=== PATIENT | male | born 1970 | race Caucasian/White ===

== ENCOUNTER → 2017-06-28 | Outpatient (CLI) | payer SELFPAY ==
--- NOTE | 2017-06-28 17:07 | XR ---
EXAMINATION TYPE: XR toes LT DATE OF EXAM: 06/28/2017 COMPARISON: NONE HISTORY: Second digit ulcer TECHNIQUE: 3 views FINDINGS: There is soft tissue swelling at the end of the second toe. Cortex is irregular at the tuft of the distal phalanx. I see no fracture. IMPRESSION: Soft tissue swelling. Tuft deformity that is suspicious for osteomyelitis.
== END | disposition home or self-care (01) ==
LOC: RADXRMAIN 16:38
PROVIDERS: ATTEND Family Medicine
DX: M79.89 Other specified soft tissue disorders (principal); M20.5X2 Other deformities of toe(s) (acquired), left foot; E11.40 Type 2 diabetes mellitus with diabetic neuropathy, unspecified

== ENCOUNTER 2017-07-02 10:31 | Inpatient (IN) | payer OTHER ==
[2017-07-02 16:23] LABS: Basophils % (A) 0 %; CH 27.8; CHCM 33.7; Eosinophils # (A) 0.2 k/uL (0-0.7); Eosinophils % (A) 4 %; HCT 37.6 % (39.0-53.0); HDW 2.81; HGB 12.1 gm/dL (13.0-17.5); Luc # (Auto) 0.09; Luc % (Auto) 2; Lymphocytes # (A) 1.5 k/uL (1.0-4.8); Lymphocytes % (A) 24 %; MCH 26.8 pg (25.0-35.0); MCHC 32.2 g/dL (31.0-37.0); Mean Platelet Volume 6.9; Monocytes # (A) 0.4 k/uL (0-1.0); Monocytes % (A) 7 %; Neutrophils % (A) 64 %; RBC 4.53 m/uL (4.30-5.90); RDW 14.1 % (11.5-15.5); WBC 6.2 k/uL (3.8-10.6); WBC (Perox) 6.45
[2017-07-02 16:46] LABS: Anion Gap 9 mmol/L; Blood Urea Nitrogen 22 mg/dL (9-20); Calcium 9.7 mg/dL (8.4-10.2); Carbon Dioxide 23 mmol/L (22-30); Chloride 106 mmol/L (98-107); Glucose 319 mg/dL (74-99); Non-African American GFR(MDRD) >60 (>60 ml/min/1.73 sqM); Potassium 4.6 mmol/L (3.5-5.1); Sodium 138 mmol/L (137-145)
[2017-07-02 17:14] LABS: Glucose,Whole Blood 292 mg/dL (75-99)
[2017-07-02] MEDS ORDERED: INSULIN ASPART 100 UNIT/ML 1 ML 10 ML VIAL SQ SCH (17:30)
[2017-07-02] MEDS ORDERED: LEVOFLOXACIN 500 MG TAB PO SCH (18:00)
--- NOTE | 2017-07-02 19:59 | HP ---
HISTORY AND PHYSICAL DATE OF ADMISSION: 07/02/17 PRESENTING COMPLAINT: Left foot and toe infection. HISTORY OF PRESENTING COMPLAINT: This is a very pleasant 47-year-old patient Dr. Harden. Chronic stable medical conditions include diabetes, hypertension, hyperlipidemia, peripheral neuropathy. The patient has had a callus on the left foot distal part of the toe. He takes off periodically this time. This time around 2 weeks ago he took it off and the toes became rather infected, swollen and red. The patient has a normal sensation in the feet. Denies any fever. Patient did get Levaquin to which he has not responded; hence, he is here. REVIEW OF SYSTEMS: CONSTITUTIONAL: None. HEENT: None. RESPIRATORY: None. CARDIOVASCULAR: None. GASTROINTESTINAL: Denies. MUSCULOSKELETAL: As above. DERMATOLOGICAL: As above. LYMPHATICS: None. PSYCHIATRY: None. NEUROLOGIC: None except for numbness and tingling in the feet. PAST MEDICAL HISTORY: Diabetes mellitus type 2, hypertension, hyperlipidemia, peripheral neuropathy. PAST SURGICAL HISTORY: Right knee arthroscopy. SOCIAL HISTORY: , No smoking. Smokes about 4 marijuanas a day. FAMILY HISTORY: Cancer, type unknown. HOME MEDICATIONS: 1. Insulin Lantus 75 units subcu q.h.s. 2. Levaquin 500 mg q.h.s. 3. NovoLog FlexPen as directed. 4. Neurontin 100 mg t.i.d. 5. Vasotec 20 mg q.h.s. 6. Lipitor 40 mg q.h.s. ALLERGIES: None. PHYSICAL EXAMINATION: Temperature 97.9, pulse 59, respirations 20, blood pressure 127/86, pulse ox 98% on room air. GENERAL APPEARANCE: Well built, BMI 36.5, sitting up comfortable. EYES: Pupils equal. Conjunctivae normal. HEENT: Oral cavity normal. NECK: JVD not raised. Mass not palpable. RESPIRATORY: Effort, lungs are clear. CARDIOVASCULAR: First and second sounds normal. No edema. ABDOMEN: Soft, nontender. Liver and spleen not palpable. LYMPHATIC: No lymph nodes palpable in neck or axillae. PSYCHIATRY: Alert and oriented x3. Mood and affect normal. NEUROLOGICAL: Pupils equal. Cranial nerves grossly intact. Some decreased sensation in the feet. The patient's left 2nd foot toes rather boggy, swollen, red, slight tenderness and breakdown of skin in the distal aspect just below the nail. INVESTIGATIONS: White count 6.2, hemoglobin 12.1, potassium 4.6, BUN 22, creatinine 0.77. Accu-Cheks 319, 292. ASSESSMENT: 1. Acute left 2nd toe cellulitis. Need to rule out abscess/osteomyelitis, being present for 2 weeks. More likely I think it is an abscess given it is swollen, tender, red. 2. Diabetes mellitus type 2, chronically on insulin, somewhat uncontrolled. 3. Essential hypertension. 4. Hyperlipidemia. 5. Peripheral neuropathy secondary to diabetes. 6. Obesity BMI 36.5. PLAN: Home medications are resumed. Will keep the current dose of Lantus but will increase the NovoLog to 20 units with each meal. We will check a HbA1c. We will switch the patient over to IV Zosyn. ID was consulted. Will await further input from them. Patient should see a dietitian for weight loss measures. Care was discussed with the patient. MMODL / MYRONN: [id number] /
[2017-07-02 20:47] LABS: Glucose,Whole Blood 310 mg/dL (75-99)
[2017-07-02] MEDS: PIPERACILLIN-TAZOBACTAM 3.375 GM in DEXTROSE/WATER 1 50ML.BAG IVPB SCH (21:31)
[2017-07-02] MEDS: LISINOPRIL 20 MG TAB PO SCH (21:31)
[2017-07-02] MEDS: ENOXAPARIN 40 MG/0.4 ML SYRINGE SQ SCH (21:31)
[2017-07-02] MEDS: ATORVASTATIN 40 MG TAB PO SCH (21:31)
[2017-07-02] MEDS: GABAPENTIN 100 MG CAP PO SCH (21:32)
[2017-07-02] MEDS: INSULIN DETEMIR 100 UNIT/ML 10 ML VIAL SQ SCH (21:42)
[2017-07-02] MEDS: INSULIN ASPART 100 UNIT/ML 1 ML 10 ML VIAL SQ SCH (23:04)
[2017-07-03] MEDS: PIPERACILLIN-TAZOBACTAM 3.375 GM in DEXTROSE/WATER 1 50ML.BAG IVPB SCH ×3 (04:19→20:25)
[2017-07-03] MEDS ORDERED: INSULIN ASPART 100 UNIT/ML 1 ML 10 ML VIAL SQ SCH ×2 (07:30→22:25)
[2017-07-03 07:41] LABS: Glucose,Whole Blood 130 mg/dL (75-99)
[2017-07-03 07:58] LABS: Basophils % (A) 0 %; CH 27.5; CHCM 34.2; Eosinophils # (A) 0.2 k/uL (0-0.7); Eosinophils % (A) 2 %; HCT 37.2 % (39.0-53.0); HDW 2.86; HGB 12.2 gm/dL (13.0-17.5); Luc # (Auto) 0.08; Luc % (Auto) 1; Lymphocytes # (A) 1.7 k/uL (1.0-4.8); Lymphocytes % (A) 23 %; MCH 26.5 pg (25.0-35.0); MCHC 32.8 g/dL (31.0-37.0); MCV 80.7 fL (80.0-100.0); Mean Platelet Volume 6.9; Monocytes # (A) 0.5 k/uL (0-1.0); Monocytes % (A) 7 %; Neutrophils # (A) 4.9 k/uL (1.3-7.7); Neutrophils % (A) 67 %; RBC 4.61 m/uL (4.30-5.90); RDW 13.7 % (11.5-15.5); WBC 7.3 k/uL (3.8-10.6); WBC (Perox) 7.48
[2017-07-03] MEDS: INSULIN ASPART 100 UNIT/ML 1 ML 10 ML VIAL SQ SCH ×4 (08:18→21:45)
[2017-07-03] MEDS: ENOXAPARIN 40 MG/0.4 ML SYRINGE SQ SCH (08:19)
[2017-07-03] MEDS: GABAPENTIN 100 MG CAP PO SCH ×3 (08:19→21:44)
[2017-07-03 08:21] LABS: Anion Gap 6 mmol/L; Blood Urea Nitrogen 16 mg/dL (9-20); Calcium 9.2 mg/dL (8.4-10.2); Carbon Dioxide 25 mmol/L (22-30); Chloride 106 mmol/L (98-107); Glucose 129 mg/dL (74-99); Non-African American GFR(MDRD) >60 (>60 ml/min/1.73 sqM); Sodium 137 mmol/L (137-145)
[2017-07-03 11:19] VITALS: BMI 36.5
[2017-07-03] MEDS ORDERED: ZOLPIDEM 5 MG TAB PO PRN (11:48)
[2017-07-03 12:09] LABS: Glucose,Whole Blood 213 mg/dL (75-99)
--- NOTE | 2017-07-03 12:27 | PN ---
PROGRESS NOTE DATE OF SERVICE: 07/03/2017 CHIEF COMPLAINT: Toe infection. INTERVAL HISTORY: This is a patient who presents with left foot toe infection. Getting antibiotics, awaiting input from ID. No fever, no diarrhea, tolerating a diet. REVIEW OF SYSTEMS: Done for constitutional, cardiovascular, GI, pulmonary, dermatological; relevant findings as above. CURRENT MEDICATIONS: Reviewed that include IV Zosyn. PHYSICAL EXAMINATION: Temperature 98.8, pulse 84, respirations 16, blood pressure 138/78, pulse ox 97% on room air. GENERAL APPEARANCE: Sitting up, comfortable. EYES: Pupil equal, conjunctivae normal. NECK: JVD not raised. Mass not palpable. RESPIRATORY: Effort normal. Lungs are clear. CARDIOVASCULAR: First and second sounds normal. No edema. ABDOMEN: Soft, nontender. Liver and spleen not palpable. PSYCHIATRY: Alert and oriented x3. Mood and affect normal. EXTREMITIES: Left foot 2nd toe infection that was boggy, swollen, red, slight tenderness and breakdown of the skin. INVESTIGATIONS: White count 7.3, hemoglobin 12.2 potassium 4.0. Accu-Cheks 130. ASSESSMENT: 1. Acute left second toe cellulitis. Need to rule out abscess/osteomyelitis being present for 2 weeks, more likely acting I think is an abscess given it is swollen, tender, red. 2. Diabetes mellitus type 2, chronically uncontrolled. 3. Essential hypertension. 4. Hyperlipidemia. 5. Peripheral neuropathy secondary to diabetes. 6. Obesity, body mass index 36.5. PLAN: Continue with current medication and treatment plan. Care was discussed with the patient. Await input from ID and follow. Patient is slow to respond. MMODL / IJN: [id number] /
[2017-07-03] MEDS: ACETAMINOPHEN TAB 325 MG TAB PO PRN (12:32)
--- NOTE | 2017-07-03 14:24 | NM ---
EXAMINATION TYPE: NM bone 3 phase DATE OF EXAM: 07/03/2017 COMPARISON: 06/28/2017 HISTORY: Left foot second toe ulceration and swelling with concern for osteomyelitis and prior radiog raph suggesting osteomyelitis. Triple phase bone scintigraphy was performed following the injection of25.6 mCi Tc 99m MDP. Immediat e images and 5 hours post injection images acquired. FINDINGS: Corresponding to the prior radiographic finding there is focal increased radiotracer uptake at the di stal aspect of the second digit of the left foot on all 3 phases (flow, blood pool, and delayed). Sym metric bilateral uptake within the hindfoot and midfoot related to arthropathy. No other suspicious a reas of uptake are identified. IMPRESSION: Findings compatible with osteomyelitis of the distal aspect of the second digit of the le ft foot. Additional symmetric hindfoot and midfoot arthropathy.
[2017-07-03 17:03] LABS: Glucose,Whole Blood 231 mg/dL (75-99)
[2017-07-03] MEDS: ATORVASTATIN 40 MG TAB PO SCH (20:25)
[2017-07-03] MEDS: LISINOPRIL 20 MG TAB PO SCH (20:25)
[2017-07-03 20:57] LABS: Glucose,Whole Blood 266 mg/dL (75-99)
[2017-07-03] MEDS: INSULIN DETEMIR 100 UNIT/ML 10 ML VIAL SQ SCH (21:44)
--- NOTE | 2017-07-04 01:12 | P.CONS ---
History of Present Illness - Reason for Consult Consult date: 07/03/17 - Chief Complaint Ulcer left second toe - History of Present Illness 47-year-old male presents to the hospital because of significant difficulty with increasing wound to the left foot second toe. The patient relates within the last few years he's had difficulties. He does have underlying diabetes mellitus that is poorly controlled. He has difficulty with his dietary compliance, he has eaten [place] fried chicken for dinner and is drinking a Mountain Dew. The patient relates that he had a [place] fitting boots which started callous formation to that second toe a couple years ago. Since then he appears down the callus himself on an ongoing basis. Within the last few weeks he. The callus and relates that he had much too deeply. Been having some drainage and difficulty since. The days before admission the toe became much more swollen and erythematous developed some drainage. He was in the outpatient setting in place of antibiotic therapy with Levaquin. Despite this the toe markedly worsened and he constantly was admitted to hospital for further intervention. The infectious diseases consultation was requested. The patient relates that he is with some discomfort but he is not in severe pain. Review of Systems HEENT:Denies headache or acute visual change. Denies sinus or mouth discomforts. Denies neck stiffness or pain. Denies significant oral cavity pain. Denies difficulty on swallowing. Lungs: Denies significant shortness of breath, cough, sputum production, or hemoptysis. Cardiovascular: Denies significant shortness of breath, chest pain, chest wall pain, orthopnea, dyspnea on exertion, syncope Gastrointestinal:Denies nausea, vomiting, diarrhea, constipation, hematemesis, melena, hematochezia. No no significant change of bowel habit noticed. Musculoskeletal: denies significant myalgias or arthralgias. No new joint swelling. Denies new back pain. Skin: Swelling erythema and drainage left foot second toe as per the HPI Neuro: Denies headache or visual change. Denies any new onset weakness or difficulty with ambulation. Denies falls or seizures. Psychiatric:Denies anxiety or depression. Endocrine: Relates tingling difficulties with his glucose control. Past Medical History Past Medical History: Diabetes Mellitus, Hyperlipidemia, Hypertension Additional Past Medical History / Comment(s): IDDM type II, R foot 2nd toe injury 2 yrs ago-healed with thick callous which pt picked off 2-3 weeks ago and then got infected, bilateral foot pain with walking mostly, bilateral feet neuropathy, has had boils lanced on neck and back. 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 No tobacco use but does use medical marijuana. No Alcohol abuse. No injection drug use. Pet dog at home. No experience Smoking Status: Never smoker - Past Family History Father History Unknown: Yes Additional Family Medical History / Comment(s): Pt was not raised by biological father. Mother Family Medical History: Cancer Additional Family Medical History / Comment(s): Mother of breast cancer. Medications and Allergies Home Medications and Allergies Comment(s): Current Medications Acetaminophen (Tylenol Tab) 650 mg PO Q6HR PRN PRN Reason: Fever and/ or Pain Last Admin: 07/03/17 12:32 Dose: 650 mg Atorvastatin Calcium (Lipitor) 40 mg PO HS [facility] Last Admin: 07/03/17 20:25 Dose: 40 mg Enoxaparin Sodium (Lovenox) 40 mg SQ DAILY [facility] Last Admin: 07/03/17 08:19 Dose: 40 mg Gabapentin (Neurontin) 100 mg PO TID [facility] Last Admin: 07/03/17 21:44 Dose: 100 mg Piperacillin/Tazobactam/ (Dextrose 3.375 gm/ IV Solution) 50 mls @ 12.5 mls/hr IVPB Q8H [facility] Last Admin: 07/03/17 20:25 Dose: 12.5 mls/hr Insulin Aspart (Novolog) 0 unit SQ ACHS [facility] PRN Reason: Protocol Last Admin: 07/03/17 21:45 Dose: 5 unit Insulin Detemir (Levemir) 55 unit SQ HS [facility] Last Admin: 07/03/17 21:44 Dose: 55 unit Lisinopril (Zestril) 40 mg PO HS [facility] Last Admin: 07/03/17 20:25 Dose: 40 mg Zolpidem Tartrate (Ambien) 2.5 mg PO HS PRN PRN Reason: Insomnia Last Admin: 07/03/17 22:03 Dose: 2.5 mg Home Medications Medication Instructions Recorded Confirmed Type Atorvastatin [Lipitor] 40 mg PO HS 07/02/17 07/02/17 History Enalapril [Vasotec] 20 mg PO HS 07/02/17 07/02/17 History Gabapentin [Neurontin] 100 mg PO TID 07/02/17 07/02/17 History Insulin Aspart [Novolog Flexpen] 7 unit SQ DIRECTED 07/02/17 07/02/17 History Insulin Glargine,Hum.rec.anlog 55 unit SQ HS 07/02/17 07/02/17 History [Lantus Solostar] Levofloxacin [Levaquin] 500 mg PO HS 07/02/17 07/02/17 History Allergies Allergy/AdvReac Type Severity Reaction Status Date / Time No Known Allergies Allergy Verified 07/02/17 13:15 Physical Exam Vitals: Vital Signs Temp Pulse Resp BP BP Pulse Ox 07/03/17 23:00 98.2 F 88 18 148/87 95 07/03/17 15:00 97.6 F 77 16 146/97 94 L 07/03/17 07:00 98.8 F 84 16 138/78 97 Intake and Output 07/03/17 07/03/17 07/04/17 14:59 22:59 06:59 Intake Total 200 600 Balance 200 600 Intake: Oral 200 600 Other: Voiding Method Toilet Urinal # Voids 2 1 Weight 115.4 kg Patient Weight 07/04/17 06:59 Weight 115.4 kg 47-year-old male who is in no acute distress HEENT: Anicteric conjunctiva are pink and moist nasal mucosa grossly intact without significant lesions, there is no thrush. Neck: The neck is supple without significant lymphadenopathy or thyromegaly. Lungs: Good bilateral air entry without significant crackles only a few scattered wheezes are heard There is no significant bronchial sounds. There is no egophony or dullness. Heart: Regular rate and rhythm with an audible S1-S2, no S3 no S4. There is no significant murmur click or rub, PMI was nondisplaced. Abdomen: Obese, Positive bowel sounds soft and nontender without palpable masses or organomegaly. There was no guarding or rebound. Extremities: The upper extremities have excellent pulses they are symmetric, no significant petechiae or telangiectasia. No splinter hemorrhages were noted. Right lower extremity without significant lesions. Left foot shows evidence of some swelling. The second toe has evidence of the distal ulceration. There are some expressible purulence which is cultured. There is dense erythema and some of the swelling to the toe attracts onto the dorsum of the foot and onto the distal leg. No significant left inguinal lymphadenopathy is noted. No abnormal lymph nodes are noted. Neuro: Awake alert oriented to person place and time. There are no acute new gross focal sensory motor deficits. Results CBC & Chem 7: 07/03/17 07:35 07/03/17 07:35 Labs: Abnormal Lab Results - Last 24 Hours (Table) 07/03/17 07/03/17 07/03/17 Range/Units 07:35 07:35 07:36 Hgb 12.2 L (13.0-17.5) gm/dL Hct 37.2 L (39.0-53.0) % Glucose 129 H (74-99) mg/dL POC Glucose (mg/dL) 130 H (75-99) mg/dL 07/03/17 07/03/17 07/03/17 Range/Units 11:53 16:59 20:54 Hgb (13.0-17.5) gm/dL Hct (39.0-53.0) % Glucose (74-99) mg/dL POC Glucose (mg/dL) 213 H 231 H 266 H (75-99) mg/dL Microbiology - Last 24 Hours (Table) 07/02/17 15:31 Blood Culture - Preliminary Blood No Growth after 24 hours 07/02/17 23:15 Urine Culture - Preliminary Urine,Voided Laboratory Results WBC 7.3 k/uL (3.8-10.6) 07/03/17 07:35 RBC 4.61 m/uL (4.30-5.90) 07/03/17 07:35 Hgb 12.2 gm/dL (13.0-17.5) L 07/03/17 07:35 Hct 37.2 % (39.0-53.0) L 07/03/17 07:35 MCV 80.7 fL (80.0-100.0) 07/03/17 07:35 MCH 26.5 pg (25.0-35.0) 07/03/17 07:35 MCHC 32.8 g/dL (31.0-37.0) 07/03/17 07:35 RDW 13.7 % (11.5-15.5) 07/03/17 07:35 Plt Count 261 k/uL (150-450) 07/03/17 07:35 Neutrophils % 67 % 07/03/17 07:35 Lymphocytes % 23 % 07/03/17 07:35 Monocytes % 7 % 07/03/17 07:35 Eosinophils % 2 % 07/03/17 07:35 Basophils % 0 % 07/03/17 07:35 Neutrophils # 4.9 k/uL (1.3-7.7) 07/03/17 07:35 Lymphocytes # 1.7 k/uL (1.0-4.8) 07/03/17 07:35 Monocytes # 0.5 k/uL (0-1.0) 07/03/17 07:35 Eosinophils # 0.2 k/uL (0-0.7) 07/03/17 07:35 Basophils # 0.0 k/uL (0-0.2) 07/03/17 07:35 Sodium 137 mmol/L (137-145) 07/03/17 07:35 Potassium 4.0 mmol/L (3.5-5.1) 07/03/17 07:35 Chloride 106 mmol/L (98-107) 07/03/17 07:35 Carbon Dioxide 25 mmol/L (22-30) 07/03/17 07:35 Anion Gap 6 mmol/L 07/03/17 07:35 BUN 16 mg/dL (9-20) 07/03/17 07:35 Creatinine 0.80 mg/dL (0.66-1.25) 07/03/17 07:35 Est GFR (MDRD) Af Amer >60 (>60 ml/min/1.73 sqM) 07/03/17 07:35 Est GFR (MDRD) Non-Af >60 (>60 ml/min/1.73 sqM) 07/03/17 07:35 Glucose 129 mg/dL (74-99) H 07/03/17 07:35 POC Glucose (mg/dL) 266 mg/dL (75-99) H 07/03/17 20:54 POC Glu Bass Mechanism Maker ID Sera Grigsby 07/03/17 20:54 Calcium 9.2 mg/dL (8.4-10.2) 07/03/17 07:35 Microbiology 07/02/17 15:31 Blood Blood Culture - Preliminary No Growth after 24 hours 07/02/17 23:15 Urine,Voided Urine Culture - Preliminary Comments: X-ray with evidence of osteomyelitis of the distal tuft of the second toe left foot Assessment and Plan (1) Osteomyelitis of toe of left foot Narrative/Plan: 47-year-old male with a known history of diabetes mellitus type 2 poorly controlled has developed a callus area to the left foot second toe. He has been doing self parring of the callus. Recently apparently this became more injured. Is now developed evidence of significant infection to that digit that extends onto the dorsum of the foot and the distal leg. There is evidence of an ostial myelitis that site. Cultures are process. With his diabetes antibiotic therapy will be utilized with Zosyn at this time. Wound care with medical Honey is applied. Wound culture obtained which will further help direct therapy at the time of discharge. Likely will need outpatient intravenous antibiotic therapy for toe salvage. Will need diabetic shoes with appropriate fitting so that he will prevent further wounds in the future. Current Visit: Yes Status: Acute Code(s): M86.9 - OSTEOMYELITIS, UNSPECIFIED SNOMED Code(s): 74082383 (2) Diabetes mellitus type 2 with complications, uncontrolled Current Visit: Yes Status: Acute Code(s): E11.8 - TYPE 2 DIABETES MELLITUS WITH UNSPECIFIED COMPLICATIONS; E11.65 - TYPE 2 DIABETES MELLITUS WITH HYPERGLYCEMIA SNOMED Code(s): 305046885
[2017-07-04] MEDS: PIPERACILLIN-TAZOBACTAM 3.375 GM in DEXTROSE/WATER 1 50ML.BAG IVPB SCH ×3 (04:21→21:15)
[2017-07-04] MEDS: ACETAMINOPHEN TAB 325 MG TAB PO PRN (05:59)
[2017-07-04 07:24] LABS: Glucose,Whole Blood 212 mg/dL (75-99)
[2017-07-04] MEDS: INSULIN ASPART 100 UNIT/ML 1 ML 10 ML VIAL SQ SCH ×4 (07:48→21:16)
[2017-07-04] MEDS: GABAPENTIN 100 MG CAP PO SCH ×3 (07:48→21:15)
[2017-07-04] MEDS: ENOXAPARIN 40 MG/0.4 ML SYRINGE SQ SCH (07:48)
[2017-07-04 08:41] LABS: Anion Gap 8 mmol/L; Blood Urea Nitrogen 16 mg/dL (9-20); Calcium 9.6 mg/dL (8.4-10.2); Carbon Dioxide 27 mmol/L (22-30); Chloride 105 mmol/L (98-107); Glucose 189 mg/dL (74-99); Non-African American GFR(MDRD) >60 (>60 ml/min/1.73 sqM); Potassium 4.4 mmol/L (3.5-5.1); Sodium 140 mmol/L (137-145)
[2017-07-04 11:51] LABS: Glucose,Whole Blood 248 mg/dL (75-99)
[2017-07-04 16:54] LABS: Glucose,Whole Blood 186 mg/dL (75-99)
--- NOTE | 2017-07-04 17:21 | P.PN ---
Progress Note - Text Progress Note Date: 07/04/17 DATE OF SERVICE: 07/04/2017 PRESENTING COMPLAINT: Left toe infection HISTORY OF PRESENT ILLNESS: 47-year-old male who had a callus on the left second distal phalanx, he removes it himself periodically. About 2 weeks ago he took it off and since that time the toe has become infected. Was seen by his primary care physician received Levaquin to which she had not responded, Admitted for the same. INTERVAL HISTORY: 07/04/2017: Patient seen in follow-up lying in bed appears comfortable. No acute overnight events. Remains afebrile. Tolerating his diet, ambulatory within the room. Moved his bowels prior to admission. REVIEW OF SYSTEMS: Done for constitutional ,cardiovascular, GI, pulmonary, musculoskeletal, integument with relevant findings as above. CURRENT MEDICATIONS Tylenol, Lipitor, Lovenox, Neurontin, NovoLog, Levemir 35 units subcu at bedtime , Zestril 40 mg by mouth at bedtime, Zosyn 3.375 g in IVP back, Ambien 2.5 mg by mouth at bedtime. PHYSICAL EXAM VITAL SIGNS: Temperature 97.3, pulse 79, respirations 20, blood pressure 155/64, oxygen saturation 98% on room air. GENERAL APPEARANCE: Lying in bed, not in distress. EYES: Pupils equal. Conjunctiva normal. NECK: JVD not raised. Mass not palpable. RESPIRATORY: Respiratory effort normal. Lungs clear to auscultation. CARDIOVASCULAR: First and second sounds normal. No edema. ABDOMEN: Soft. Liver and spleen not palpable. No tenderness. No mass palpable. PSYCHIATRY: Alert and oriented x3. Mood and affect normal. NEUROLOGIC: Decreased sensation in the bilateral feet left second toe is boggy, swollen, red, mild tenderness, skin breakdown at the distal aspect just below the nail. INVESTIGATIONS: BMP unremarkable, Accu-Cheks running between 129-310 ASSESSMENT: -Acute left second toe osteomyelitis Likely abscess present for 2 weeks, slow to respond -Diabetes mellitus type 2, chronically on insulin, somewhat uncontrolled. -Essential hypertension. -Hyperlipidemia. -Peripheral neuropathy secondary to diabetes -Obesity body mass index 36.5. PLAN: Patient's blood glucose at each meal before each meal has been pretty high, we will resume his prandial NovoLog at 7 units with each meal and see how he does. Continue current antibiotic therapy per infectious disease. Dressing changes per infectious disease with medical honey. Plan of care discussed with the patient at the bedside he is in agreement. We will follow closely. CUT OFF OPERATOR SCORER statement: Patient was seen and examined by nurse practitioner Rosalva Barr and all elements of the case discussed with attending Dr. Gutierrez
[2017-07-04] MEDS ORDERED: INSULIN ASPART 100 UNIT/ML 1 ML 10 ML VIAL SQ SCH (17:30)
[2017-07-04 20:52] LABS: Glucose,Whole Blood 171 mg/dL (75-99)
[2017-07-04] MEDS: INSULIN DETEMIR 100 UNIT/ML 10 ML VIAL SQ SCH (21:15)
[2017-07-04] MEDS: ATORVASTATIN 40 MG TAB PO SCH (21:15)
[2017-07-04] MEDS: LISINOPRIL 20 MG TAB PO SCH (21:15)
--- NOTE | 2017-07-04 22:57 | PN ---
PROGRESS NOTE DATE OF SERVICE: 07/04/17. ATTENDING NOTE: This patient was seen and examined by me. I discussed with my nurse practitioner, Ms. Barr. The patient has some pain in the left foot second toe. Bone scan has come back positive for osteomyelitis. EXAM: Lungs are clear. Cardiovascular first and second sounds normal. No diarrhea. Afebrile. Accu-Cheks are noted. ASSESSMENT: Acute left distal metatarsal osteomyelitis with possible surrounding abscess cellulitis. PLAN: Sugars still running high. I have increased the Lovenox and NovoLog. Antibiotics are to continue. MMODL / IJN: [id number] /
--- NOTE | 2017-07-05 00:02 | P.PN ---
Subjective Progress Note Date: 07/04/17 Principal diagnosis: Diabetic foot ulcer 47-year-old male presents to the hospital because of significant difficulty with increasing wound to the left foot second toe. The patient relates within the last few years he's had difficulties. He does have underlying diabetes mellitus that is poorly controlled. He has difficulty with his dietary compliance, he has eaten [place] fried chicken for dinner and is drinking a Mountain Dew. The patient relates that he had a [employer] fitting boots which started callous formation to that second toe a couple years ago. Since then he appears down the callus himself on an ongoing basis. Within the last few weeks he. The callus and relates that he had much too deeply. Been having some drainage and difficulty since. The days before admission the toe became much more swollen and erythematous developed some drainage. He was in the outpatient setting in place of antibiotic therapy with Levaquin. Despite this the toe markedly worsened and he constantly was admitted to hospital for further intervention. The infectious diseases consultation was requested. The patient relates that he is with some discomfort but he is not in severe pain. Objective - Vital Signs Vital signs: Vital Signs Temp 97.4 F L 07/04/17 22:59 Pulse 85 07/04/17 22:59 Resp 16 07/04/17 23:13 BP 144/77 07/04/17 22:59 Pulse Ox 96 07/04/17 22:59 Intake & Output 07/04/17 07/04/17 07/05/17 06:59 18:59 06:59 Intake Total 1400 1200 Balance 1400 1200 Intake: Oral 1400 1200 Other: Voiding Method Toilet Toilet Urinal Urinal # Voids 2 4 2 - Exam 47-year-old male who is in no acute distress HEENT: Anicteric conjunctiva are pink and moist nasal mucosa grossly intact without significant lesions, there is no thrush. Neck: The neck is supple without significant lymphadenopathy or thyromegaly. Lungs: Good bilateral air entry without significant crackles only a few scattered wheezes are heard There is no significant bronchial sounds. There is no egophony or dullness. Heart: Regular rate and rhythm with an audible S1-S2, no S3 no S4. There is no significant murmur click or rub, PMI was nondisplaced. Abdomen: Obese, Positive bowel sounds soft and nontender without palpable masses or organomegaly. There was no guarding or rebound. Extremities: The upper extremities have excellent pulses they are symmetric, no significant petechiae or telangiectasia. No splinter hemorrhages were noted. Right lower extremity without significant lesions. Left foot shows evidence of some swelling. The second toe has evidence of the distal ulceration. There are some expressible purulence which is cultured. There is dense erythema and some of the swelling to the toe attracts onto the dorsum of the foot and onto the distal leg. No significant left inguinal lymphadenopathy is noted. No abnormal lymph nodes are noted. Neuro: Awake alert oriented to person place and time. There are no acute new gross focal sensory motor deficits. - Labs CBC & Chem 7: 07/03/17 07:35 07/04/17 07:42 Labs: Abnormal Lab Results - Last 24 Hours (Table) 07/03/17 07/04/17 07/04/17 Range/Units 07:35 07: 07:42 Glucose 189 H (74-99) mg/dL POC Glucose (mg/dL) 212 H (75-99) mg/dL Hemoglobin A1c 13.1 H (4.0-6.0) % 07/04/17 07/04/17 07/04/17 Range/Units 11:26 16:48 20:51 Glucose (74-99) mg/dL POC Glucose (mg/dL) 248 H 186 H 171 H (75-99) mg/dL Hemoglobin A1c (4.0-6.0) % Microbiology - Last 24 Hours (Table) 07/02/17 15:31 Blood Culture - Preliminary Blood No Growth after 48 hours 07/03/17 15:12 Gram Stain - Preliminary Toe - Left Second Wound Culture - Preliminary 07/02/17 23:15 Urine Culture - Final Urine,Voided 07/03/17 15:12 Anaerobic Culture - Preliminary Toe - Left Second Laboratory Results WBC 7.3 k/uL (3.8-10.6) 07/03/17 07:35 RBC 4.61 m/uL (4.30-5.90) 07/03/17 07:35 Hgb 12.2 gm/dL (13.0-17.5) L 07/03/17 07:35 Hct 37.2 % (39.0-53.0) L 07/03/17 07:35 MCV 80.7 fL (80.0-100.0) 07/03/17 07:35 MCH 26.5 pg (25.0-35.0) 07/03/17 07:35 MCHC 32.8 g/dL (31.0-37.0) 07/03/17 07:35 RDW 13.7 % (11.5-15.5) 07/03/17 07:35 Plt Count 261 k/uL (150-450) 07/03/17 07:35 Neutrophils % 67 % 07/03/17 07:35 Lymphocytes % 23 % 07/03/17 07:35 Monocytes % 7 % 07/03/17 07:35 Eosinophils % 2 % 07/03/17 07:35 Basophils % 0 % 07/03/17 07:35 Neutrophils # 4.9 k/uL (1.3-7.7) 07/03/17 07:35 Lymphocytes # 1.7 k/uL (1.0-4.8) 07/03/17 07:35 Monocytes # 0.5 k/uL (0-1.0) 07/03/17 07:35 Eosinophils # 0.2 k/uL (0-0.7) 07/03/17 07:35 Basophils # 0.0 k/uL (0-0.2) 07/03/17 07:35 Sodium 140 mmol/L (137-145) 07/04/17 07:42 Potassium 4.4 mmol/L (3.5-5.1) 07/04/17 07:42 Chloride 105 mmol/L (98-107) 07/04/17 07:42 Carbon Dioxide 27 mmol/L (22-30) 07/04/17 07:42 Anion Gap 8 mmol/L 07/04/17 07:42 BUN 16 mg/dL (9-20) 07/04/17 07:42 Creatinine 0.81 mg/dL (0.66-1.25) 07/04/17 07:42 Est GFR (MDRD) Af Amer >60 (>60 ml/min/1.73 sqM) 07/04/17 07:42 Est GFR (MDRD) Non-Af >60 (>60 ml/min/1.73 sqM) 07/04/17 07:42 Glucose 189 mg/dL (74-99) H 07/04/17 07:42 POC Glucose (mg/dL) 171 mg/dL (75-99) H 07/04/17 20:51 POC Glu Clinical Molecular Geneticist ID Lori Starkey 07/04/17 20:[address] Glu mg/dL 329 07/03/17 07:35 Hemoglobin A1c 13.1 % (4.0-6.0) H 07/03/17 07:35 Calcium 9.6 mg/dL (8.4-10.2) 07/04/17 07:42 Microbiology 07/02/17 15:31 Blood Blood Culture - Preliminary No Growth after 48 hours 07/03/17 15:12 Toe - Left Second Gram Stain - Preliminary 07/03/17 15:12 Toe - Left Second Wound Culture - Preliminary 07/02/17 23:15 Urine,Voided Urine Culture - Final 07/03/17 15:12 Toe - Left Second Anaerobic Culture - Preliminary Assessment and Plan (1) Osteomyelitis of toe of left foot Narrative/Plan: 47-year-old male with a known history of diabetes mellitus type 2 poorly controlled has developed a callus area to the left foot second toe. He has been doing self parring of the callus. Recently apparently this became more injured. Is now developed evidence of significant infection to that digit that extends onto the dorsum of the foot and the distal leg. There is evidence of an ostial myelitis that site. Cultures are process. With his diabetes antibiotic therapy will be utilized with Zosyn at this time. Wound care with medical Honey is applied. Wound culture obtained which will further help direct therapy at the time of discharge. Likely will need outpatient intravenous antibiotic therapy for toe salvage. Will need diabetic shoes with appropriate fitting so that he will prevent further wounds in the future. Current Visit: Yes Status: Acute Code(s): M86.9 - OSTEOMYELITIS, UNSPECIFIED SNOMED Code(s): 48743185 (2) Diabetes mellitus type 2 with complications, uncontrolled Current Visit: Yes Status: Acute Code(s): E11.8 - TYPE 2 DIABETES MELLITUS WITH UNSPECIFIED COMPLICATIONS; E11.65 - TYPE 2 DIABETES MELLITUS WITH HYPERGLYCEMIA SNOMED Code(s): 904794988
[2017-07-05] MEDS: PIPERACILLIN-TAZOBACTAM 3.375 GM in DEXTROSE/WATER 1 50ML.BAG IVPB SCH ×2 (05:05→11:11)
[2017-07-05] MEDS: GABAPENTIN 100 MG CAP PO SCH (07:50)
[2017-07-05] MEDS: ENOXAPARIN 40 MG/0.4 ML SYRINGE SQ SCH (07:50)
[2017-07-05] MEDS: INSULIN ASPART 100 UNIT/ML 1 ML 10 ML VIAL SQ SCH ×4 (07:55→13:05)
[2017-07-05 08:28] LABS: Anion Gap 8 mmol/L; Blood Urea Nitrogen 18 mg/dL (9-20); Calcium 10.1 mg/dL (8.4-10.2); Carbon Dioxide 28 mmol/L (22-30); Chloride 106 mmol/L (98-107); Glucose 134 mg/dL (74-99); Non-African American GFR(MDRD) >60 (>60 ml/min/1.73 sqM); Potassium 4.5 mmol/L (3.5-5.1); Sodium 142 mmol/L (137-145)
[2017-07-05 08:56] LABS: Glucose,Whole Blood 134 mg/dL (75-99)
[2017-07-05 12:40] LABS: Glucose,Whole Blood 184 mg/dL (75-99)
[2017-07-05 14:47] VITALS: BP 164/91; PULSE 82; RESP 18; TEMP 97.4
--- NOTE | 2017-07-05 17:56 | P.DS ---
Providers Date of admission: 07/02/17 12:42 Expected date of discharge: 07/05/17 Attending physician: Malcom Gutierrez Consults: 07/02/17 14:59 Consult Physician Routine Consulting Provider: Glynn Atkinson Reason/Comments: Osteomyelitis Do you want consulting provider notified?: Yes Primary care physician: [facility] Course: FINAL DIAGNOSES: -Acute left second toe osteomyelitis. Likely abscess present for 2 weeks, slow to respond -Diabetes mellitus type 2, chronically on insulin, somewhat uncontrolled. -Essential hypertension. -Hyperlipidemia. -Peripheral neuropathy secondary to diabetes -Obesity body mass index 36.5. HOSPTIAL COURSE: 47-year-old male admitted for an infected left second distal phalanx, total have evidence of osteomyelitis. Home medications reordered, infectious disease consulted, IV antibiotics initiated. Local wound care provided. Patient's blood glucoses found to be running high, insulin adjusted. Infectious disease provided moxifloxacin for 6 weeks, wound culture positive for strep agalactiae Overall condition stabilized, patient tolerating his diet, ambulatory in the room and hallway, moved his bowels. Had an episode of diarrhea, C. diff sent negative for C. difficile. Anxious to go home. Patient should follow-up in the wound care center as well as purchasing diabetic shoes with appropriate fit to avoid further wounds in the future. Condition is stable patient is appropriate for discharge. PHYSICAL EXAM: CARDIOVASCULAR: First and second sounds noted no edema RESPIRATORY: Effort normal, lung sounds diminished bilaterally GI: Loose BM today. MUSKULOSKELETAL: Left second toe warm erythema, improving. PSYCHIATRY: Alert and oriented 3 mood and affect normal. Patient was seen and examined by nurse practitioner Rosalva Barr in all elements of the case discussed with attending Dr. Gutierrez DISPOSITION: Discharge home to the care of his . Plan - Discharge Summary Discharge Rx Participant: Yes New Discharge Prescriptions: New Moxifloxacin HCl [Avelox] 400 mg PO DAILY #42 tablet Lactobacillus Acidoph & Bulgar [Lactinex] 1 packet PO TID #90 packet Insulin Aspart [NovoLOG (formulary)] 10 unit SQ AC-TID #1 vial Insulin Glargine [Lantus] 62 unit SQ HS #1 vial Lancets 1 each MC AC-TID #1 each Syringe and Needle,Insulin,1Ml [INSULIN SYRINGE 28G 1/2" 1ML] 1 syr SQ DIRECTED #1 box Continue Gabapentin [Neurontin] 100 mg PO TID Enalapril [Vasotec] 20 mg PO HS Atorvastatin [Lipitor] 40 mg PO HS Discontinued Levofloxacin [Levaquin] 500 mg PO HS Discharge Medication List Atorvastatin [Lipitor] 40 mg PO HS 07/02/17 [History] Enalapril [Vasotec] 20 mg PO HS 07/02/17 [History] Gabapentin [Neurontin] 100 mg PO TID 07/02/17 [History] Insulin Aspart [NovoLOG (formulary)] 10 unit SQ AC-TID #1 vial 07/05/17 [Rx] Insulin Glargine [Lantus] 62 unit SQ HS #1 vial 07/05/17 [Rx] Lactobacillus Acidoph & Bulgar [Lactinex] 1 packet PO TID #90 packet 07/05/17 [ Rx] Lancets 1 each MC AC-TID #1 each 07/05/17 [Rx] Moxifloxacin HCl [Avelox] 400 mg PO DAILY #42 tablet 07/05/17 [Rx] Syringe and Needle,Insulin,1Ml [INSULIN SYRINGE 28G 1/2" 1ML] 1 syr SQ DIRECTED #1 box 07/05/17 [Rx] Follow up Appointment(s)/Referral(s): Glynn Atkinson MD [STAFF PHYSICIAN] - 3 Weeks (one week in wound center- office will call with appointment time) Jak Harden DO [Primary Care Provider] - 07/07/17 3:30 pm Patient Instructions/Handouts: Osteomyelitis (DC) Activity/Diet/Wound Care/Special Instructions: MWF medical honey patient needs diabetic shoes with appropriate fitting to avoid further wounds in the future Discharge Disposition: HOME SELF-CARE
[2017-07-05] MEDS ORDERED: INSULIN DETEMIR 100 UNIT/ML 10 ML VIAL SQ SCH (21:00)
--- NOTE | 2017-07-06 07:31 | DS ---
DISCHARGE SUMMARY DATE OF SERVICE: 07/06/2017. ATTENDING NOTE: Patient was seen and examined by me. I discussed with nurse practitioner, Ms. Barr. The patient's left foot toe is getting better. Diagnosis of osteomyelitis. Had slight diarrhea. CT came back negative. Patient is on antibiotic associated with diarrhea. Patient is being discharged. Lungs are clear cardiovascular. CARDIOVASCULAR: First and second sounds are normal. On Avelox. Lactinex is being added. Insulin dose was adjusted. Care was discussed in detail with the patient. Questions were answered. Discharge planning more than 35 minutes. MMODL / IJN: [id number] /
== END 2017-07-05 16:41 | disposition home or self-care (01) | DRG 638 ==
LOC: 4MS4W 12:42
PROVIDERS: ADMIT Hospitalist; ATTEND Hospitalist
DX: E11.69 Type 2 diabetes mellitus with other specified complication (principal); M86.9 Osteomyelitis, unspecified; E11.42 Type 2 diabetes mellitus with diabetic polyneuropathy; E11.621 Type 2 diabetes mellitus with foot ulcer; L02.612 Cutaneous abscess of left foot; L03.032 Cellulitis of left toe; E11.65 Type 2 diabetes mellitus with hyperglycemia; I10 Essential (primary) hypertension; E78.5 Hyperlipidemia, unspecified; R19.7 Diarrhea, unspecified; L97.529 Non-pressure chronic ulcer of other part of left foot with unspecified severity; E66.9 Obesity, unspecified; Z79.899 Other long term (current) drug therapy; Z79.4 Long term (current) use of insulin; Z80.3 Family history of malignant neoplasm of breast; Z86.14 Personal history of Methicillin resistant Staphylococcus aureus infection
CPT/HCPCS: 78315; 80048; 83036; 85025; 87040; 87070; 87075; 87086; 87205; 87324

== ENCOUNTER → 2020-05-01 | Outpatient (CLI) | payer BC ==
--- NOTE | 2020-05-02 07:29 | US ---
EXAMINATION TYPE: US kidneys/renal and bladder DATE OF EXAM: 05/01/2020 COMPARISON: NONE CLINICAL HISTORY: N17.9 Acute renal syndrome. EXAM MEASUREMENTS: Right Kidney: 10.6 x 6.7 x 5.9 cm Left Kidney: 11.4 x 6.0 x 6.6 cm Post Void Residual Volume: 16.40 mL Right Kidney: No hydronephrosis or masses seen Left Kidney: No hydronephrosis or masses seen Bladder: wnl Bilateral Jets seen: Yes Normal Post Void Residual: Yes There is no evidence for hydronephrosis at this point in time. No nephrolithiasis is seen. No rush s are identified. The urinary bladder is anechoic. Bilateral ureteral jets are seen. IMPRESSION: No distinct abnormality appreciated.
== END | disposition home or self-care (01) ==
LOC: RADUSWWP 15:35
PROVIDERS: ATTEND Family Medicine
DX: N17.9 Acute kidney failure, unspecified (principal)
CPT/HCPCS: 76770

== ENCOUNTER → 2020-07-18 | Outpatient (CLI) | payer BC ==
--- NOTE | 2020-08-01 11:22 | P.ARTDOP ---
Arterial Doppler LOWER EXTREMITY ARTERIAL DOPPLER: DATE OF SERVICE: 07/18/2020 Reason for study: Toe ulcer. Doppler waveforms: Multiphasic bilaterally throughout. Pulse volume recording: []. Pressure gradients: None. Ankle-brachial indices: 0.95 on the right and greater than 1 on the left. Toe brachial indices: 0.57 on the right, 0.47 on the left Impression: Probably normal study. Low toe pressures with good toe waveforms suggest the possibility of mild vasospastic phenomenon. Clinical correlation recommended.
== END | disposition home or self-care (01) ==
LOC: RADUSWWP 13:01
PROVIDERS: ATTEND Family Medicine
DX: I73.9 Peripheral vascular disease, unspecified (principal)
CPT/HCPCS: 93923

== ENCOUNTER → 2020-11-19 | Outpatient (CLI) | payer BC ==
--- NOTE | 2020-11-19 15:38 | CT ---
EXAMINATION TYPE: CT abdomen pelvis w con DATE OF EXAM: 11/19/2020 COMPARISON: None HISTORY: D64.9 anemia unspecified CONTRAST: CT scan of the abdomen and pelvis is performed with Oral Contrast and with IV Contrast, patient injec francy with 80 mL of Isovue 300. FINDINGS: LUNG BASES-: No visible nodule. No infiltrate. LIVER/GB: No calcified gallstones. No space occupying hepatic lesion. Biliary tree is of normal ca liber. PANCREAS: No inflammation. No distinct mass. SPLEEN: No splenic enlargement. No lesion seen. ADRENALS: No nodule. No thickening. KIDNEYS/BLADDER: No hydronephrosis. No nephrolithiasis. No distinct renal mass. Urinary bladder g rossly unremarkable. BOWEL: Normal appendix. Normal bowel caliber. No inflammation. GENITAL ORGANS: No gross abnormality. LYMPH NODES: No greater than 1cm abdominal or pelvic lymph nodes are appreciated. AORTA: No significant abnormality. OSSEOUS STRUCTURES: No significant abnormality is seen. OTHER: No significant additional abnormality is seen. IMPRESSION: 1. No Significant abnormality seen.
== END | disposition home or self-care (01) ==
LOC: RADCTMAIN 13:03
PROVIDERS: ATTEND Family Medicine
DX: D64.9 Anemia, unspecified (principal)
CPT/HCPCS: 82565; 84520; 74177; 36415; Q9967

== ENCOUNTER 2021-01-16 06:47 | Day surgery (SDC) | payer BC ==
[2021-01-10 18:10] VITALS: BMI 38.7
[~2021-01-16 06:47] MED LIST: LACTATED RINGERS 1,000 ML IV SCH
[2021-01-16 07:02] VITALS: TEMP 97.7
[2021-01-16] MEDS ORDERED: LACTATED RINGERS 1,000 ML IV ONE (07:03)
[2021-01-16 07:15] LABS: Glucose,Whole Blood 198 mg/dL (75-99)
[2021-01-16] MEDS ORDERED: PROPOFOL 10 MG/ML 20 ML VIAL IV ONE (07:53)
--- NOTE | 2021-01-16 08:28 | P.PCN ---
Date of Procedure: 01/16/21 Description of Procedure: BRIEF HISTORY: Patient is a 51-year-old male presenting for outpatient colonoscopy for evaluation of anemia. Patient denies any signs or symptoms of GI bleeding. He has not had any endoscopic evaluation in the past. No family history of colon cancer reported. PROCEDURE PERFORMED: Colonoscopy with polypectomy. PREOPERATIVE DIAGNOSIS: Anemia, no prior colonoscopy. ESTIMATED BLOOD LOSS: Minimal. IV sedation per Anesthesia. PROCEDURE: After informed consent was obtained, the patient, was brought into the endoscopy unit. IV sedation was administered by Anesthesia under continuous monitoring. Digital rectal examination was normal. Initially the Olympus CF-190 flexible video colonoscope was then inserted in the rectum, gradually advanced into the cecum without any difficulty. Careful examination was performed as the scope was gradually being withdrawn. Ileocecal valve and the appendiceal orifice were visualized and appeared normal. Prep was excellent. Mucosa of the cecum, ascending colon, transverse colon, descending colon, sigmoid colon, and rectum appeared normal. Diminutive polyps measuring 1-2 mm in size removed with cold forcep polypectomy from the ileocecal valve, splenic flexure and sigmoid colon. Retroflexion was performed in the rectum and no lesions were seen, low-grade internal hemorrhoids seen. The patient tolerated the procedure well. IMPRESSION: 3 diminutive polyps removed from the splenic flexure, ileocecal valve and sig moid colon with cold forcep polypectomy. Internal hemorrhoids. RECOMMENDATIONS: Findings of this examination were discussed with the patient and his family. Okay to resume diet. Okay to resume medications. Await pathology from polypectomies. Follow-up in the primary care physician's office as previously scheduled. Recommend repeat colonoscopy in 5-7 years pending pathology from polypectomies
[2021-01-16 08:40] VITALS: RESP 16
[2021-01-16 08:50] VITALS: BP 137/79; PULSE 71
== END 2021-01-16 09:09 | disposition home or self-care (01) ==
LOC: ORWHC2ENDO 06:47
PROVIDERS: ATTEND Internal Medicine
DX: D12.3 Benign neoplasm of transverse colon (principal); D12.5 Benign neoplasm of sigmoid colon; K64.8 Other hemorrhoids; D64.9 Anemia, unspecified; I10 Essential (primary) hypertension; E78.5 Hyperlipidemia, unspecified; E11.9 Type 2 diabetes mellitus without complications; Z79.4 Long term (current) use of insulin; Z79.899 Other long term (current) drug therapy
CPT/HCPCS: 88305; 45380; J2704

== ENCOUNTER → 2021-10-03 | Outpatient (CLI) | payer BC ==
[2021-10-03 17:38] LABS: African American GFR (CKD) 56.5 (60.0-200.0); Albumin 4.5 g/dL (3.8-4.9); Albumin/Globulin Ratio 1.65 (1.60-3.17); Anion Gap 11.4 mmol/L (10.00-18.00); BUN/Creat Ratio 19.26 Ratio (12.00-20.00); Blood Urea Nitrogen 31.4 mg/dL (9.0-27.0); Carbon Dioxide 26.5 mmol/L (20.0-27.5); Globulin 2.7 g/dL (1.6-3.3); Non-African American GFR(CKD) 48.7 (60.0-200.0); Potassium 5.1 mmol/L (3.5-5.5); Total Bilirubin 0.3 mg/dL (0.30-1.20); Total Protein 7.3 g/dL (6.2-8.2)
== END | disposition home or self-care (01) ==
LOC: LABWHC1 09:51
PROVIDERS: ATTEND Internal Medicine
DX: E83.52 Hypercalcemia (principal)
CPT/HCPCS: 36415; 80053

== ENCOUNTER → 2021-10-13 | Outpatient (CLI) | payer BC ==
--- NOTE | 2021-10-13 21:34 | US ---
EXAMINATION TYPE: US kidneys/renal and bladder DATE OF EXAM: 10/13/2021 COMPARISON: CT abdomen and pelvis November 19, 2020 CLINICAL HISTORY: E83.52 HYPERCALCEMIA. abnormal labs. No pain EXAM MEASUREMENTS: Right Kidney: 12.2 x 5.7 x 6.3 cm Left Kidney: 11.4 x 5.6 x 5.8 cm Right Kidney: No hydronephrosis or masses seen Left Kidney: No hydronephrosis or masses seen Bladder: distended, anechoic Bilateral Jets seen There is no evidence for hydronephrosis at this point in time. No nephrolithiasis is seen. No focal solid or cystic masses are identified on images saved. The urinary bladder is satisfactorily disten ded. Bilateral ureteral jets are seen. IMPRESSION: Unremarkable study.
== END | disposition home or self-care (01) ==
LOC: RADUSWWP 15:36
PROVIDERS: ATTEND Internal Medicine
DX: E83.52 Hypercalcemia (principal)
CPT/HCPCS: 76770

== ENCOUNTER → 2021-12-13 | Outpatient (CLI) | payer BC ==
[2021-12-13 16:36] LABS: HCT 32.6 % (39.6-50.0); HGB 10.2 g/dL (13.0-17.0); MCH 27.3 pg (27.0-32.0); MCHC 31.3 g/dL (32.0-37.0); MCV 87.4 fL (80.0-97.0); Mean Platelet Volume 9.6 fL (9.5-12.2); NRBC Per 100 WBC 0 /100 WBCS (0.0-0.0); Platelet Count 262 X 10*3/uL (140-440); RBC 3.73 X 10*6/uL (4.40-5.60); RDW 13.2 % (11.5-14.5); WBC 8.25 X 10*3/uL (4.50-10.00)
[2021-12-13 16:55] LABS: % Iron Saturation 14.67 (15.00-50.00); ALT 13 U/L (10-49); AST 14 U/L (14-35); African American GFR (CKD) 65.6 (60.0-200.0); Albumin 4.6 g/dL (3.8-4.9); Albumin/Globulin Ratio 1.72 (1.60-3.17); Alkaline Phosphatase 80 U/L (41-126); BUN/Creat Ratio 24.24 Ratio (12.00-20.00); Blood Urea Nitrogen 34.9 mg/dL (9.0-27.0); Calcium 9.4 mg/dL (8.7-10.3); Carbon Dioxide 23.6 mmol/L (20.0-27.5); Chloride 105 mmol/L (96-109); Globulin 2.6 g/dL (1.6-3.3); Glucose 91 mg/dL (70-110); Iron 53 ug/dL (65-175); Magnesium 2.4 mg/dL (1.5-2.4); Non-African American GFR(CKD) 56.6 (60.0-200.0); Potassium 4.9 mmol/L (3.5-5.5); Sodium 139 mmol/L (135-145); Total Bilirubin <0.15 mg/dL (0.30-1.20); Total Iron Binding Capacity 363 ug/dL (228-460); Total Protein 7.2 g/dL (6.2-8.2); Uric Acid 6.3 mg/dL (3.7-8.7)
[2021-12-13 17:50] LABS: Appearance,Urine Clear (Clear); Bilirubin,Urine Negative (Negative); Blood,Urine Negative (Negative); Color,Urine Yellow (Yellow); Ketones,Urine Negative (Negative); Nitrite,Urine Negative (Negative); Specific Gravity,Urine 1.011 (1.001-1.030); Urobilinogen,Urine 0.2 (0.2,1.0)
[2021-12-13 19:44] LABS: Urine Creatinine 66.1 mg/dL (39.0-259.0)
[2021-12-15 11:46] LABS: Angiotensin-1 Converting Enz. 12 U/L (8-52)
[2021-12-15 14:44] LABS: Free Kappa Lt Chain Qnt, Serum 4.39 mg/dL (0.33-1.94); Free Lambda Lt Chain Qnt, Seru 2.33 mg/dL (0.57-2.63)
[2021-12-15 20:01] LABS: Vitamin D, 1, 25-Dihydroxy 12 pg/mL (20 - 79)
== END | disposition home or self-care (01) ==
LOC: LABWHC1 11:04
PROVIDERS: ATTEND Internal Medicine
DX: E83.52 Hypercalcemia (principal); D64.9 Anemia, unspecified; N39.0 Urinary tract infection, site not specified; N25.81 Secondary hyperparathyroidism of renal origin; M10.9 Gout, unspecified
CPT/HCPCS: 36415; 80053; 81003; 82043; 82164; 82306; 82570; 82652; 82728; 83540; 83550; 83735; 83883; 83970; 84100; 84166; 84550; 85027; 86334